=== PATIENT | male | born 1960 ===

== ENCOUNTER 2017-01-14 19:36 | Observation (INO) | payer BC, OTHER ==
[2017-01-14 22:29] LABS: BASO # 0.1 K/uL (0.0-0.2); BASO % 0.9 % (0.0-2.0); EOS # 0.2 K/uL (0.0-0.7); HEMATOCRIT 43.5 % (35.0-51.0); LYMPH # 2.6 K/uL (1.0-4.3); LYMPH % 32.9 % (20.0-40.0); MEAN CELL VOLUME 87.2 fl (80.0-94.0); MEAN CORPUSCULAR HEMOGLOBIN 29.5 pg (27.0-31.0); MEAN CORPUSCULAR HGB CONC 33.9 g/dL (33.0-37.0); MEAN PLATELET VOLUME 8.1 fl (7.2-11.7); MONO # 0.6 K/uL (0.0-0.8); NEUT # 4.4 K/uL (1.8-7.0); NEUT % 55.2 % (50.0-75.0); RED CELL DISTRIBUTION WIDTH 14.1 % (11.5-14.5)
[2017-01-14 22:44] LABS: BLOOD UREA NITROGEN 16 mg/dl (9-20); CALCIUM 10.4 mg/dL (8.4-10.2); CARBON DIOXIDE 28 mmol/L (22-30); CHLORIDE 104 mmol/L (98-107); GFR AFRICAN-AMERICAN > 60; GLUCOSE,RANDOM 101 mg/dL (75-110); POTASSIUM 4.1 MMOL/L (3.6-5.0); SODIUM 146 mmol/l (132-148)
[2017-01-14 22:59] LABS: PARTIAL THROMBOPLASTIN TIME 30.5 SECONDS (23.3-32.5)
--- NOTE | 2017-01-14 23:11 | CT ---
EXAM: CT Head Without Intravenous Contrast CLINICAL HISTORY: 56 years old, male; Signs and symptoms; Other: Ataxia; Patient HX: HTN. Dementia; Additional info: Dementia ataxia TECHNIQUE: Axial computed tomography images of the head/brain without intravenous contrast. This CT exam was performed using one or more of the following dose reduction techniques: automated exposure control, adjustment of the mA and/or kV according to patient size, and/or use of iterative reconstruction technique. Coronal and sagittal reformatted images were created and reviewed. COMPARISON: No relevant prior studies available. FINDINGS: Brain: There is mild prominence of ventricles and sulci, compatible with mild atrophy. There is no evidence of intracranial hemorrhage. No evidence of acute territorial infarction. No significant white matter disease. No edema. Ventricles: See above. Bones/joints: Unremarkable. No acute fracture. Soft tissues: Unremarkable. Sinuses: Unremarkable as visualized. No acute sinusitis. Mastoid air cells: Unremarkable as visualized. No mastoid effusion. IMPRESSION: 1. No evidence for acute intracranial abnormality or displaced calvarial fracture. 2. Additional incidental and/or chronic findings as described.
--- NOTE | 2017-01-14 23:30 | ED PDOC ---
HPI: General Adult Time Seen by Provider: 01/14/17 20:35 Chief Complaint (Nursing): Abnormal Labs Chief Complaint (Provider): gait issues and dementia History Per: Patient History/Exam Limitations: no limitations Onset/Duration Of Symptoms: Days (1 year ) Have you had recent travel within the past 21 days to any of the following countries: [place], [place], [place] or [place]?: No Current Symptoms Are (Timing): Still Present Additional Complaint(s): 56yo male presents to the ED with c/o of gait issues and dementia for 1 year. Patient's PCP is Dr. Burroughs and has had multiple workups and syphilis was positive so he sent patient to infectious disease specialist Dr. Gonzalez. In January, patient saw Dr. Estrella (neurologist) and worked patient up for ataxia and dementia. Dr. Estrella then referred patient back to Dr. Burroughs again and patient decided to present to the ED for evaluation. Denies weakness, fever, headache. States sometimes he falls. Patient has never had a CT or MRI of his head. Past Medical History Reviewed: Historical Data, Nursing Documentation, Vital Signs Vital Signs: Last Vital Signs Temp 96.7 F L 01/16/17 00:15 Pulse 65 01/16/17 03:30 Resp 20 01/16/17 00:15 BP 110/70 01/16/17 00:15 Pulse Ox 96 01/16/17 00:15 - Medical History PMH: No Chronic Diseases - Surgical History Surgical History: No Surg Hx - Family History Family History: States: No Known Family Hx - Home Medications Home Medications: Ambulatory Orders Medication Instructions Recorded Aspirin [Ecotrin] 81 mg PO DAILY 01/15/17 Baclofen [Lioresal] 10 mg PO DAILY 01/15/17 Cholecalciferol [Vitamin D 1000 IU] 1,000 iu PO DAILY 01/15/17 Gabapentin [Neurontin] 300 mg PO DAILY 01/15/17 Iron Ps Cmplx/Vit B12/FA 1 cap PO DAILY 01/15/17 [Poly-Iron 150 Forte Capsule] Memantine HCl/Donepezil HCl 1 pkg PO DAILY 01/15/17 [Namzaric Titration Pack] - Allergies Allergies/Adverse Reactions: Allergies Allergy/AdvReac Type Severity Reaction Status Date / Time No Known Allergies Allergy Verified 01/14/17 19:51 Review of Systems ROS Statement: Except As Marked, All Systems Reviewed And Found Negative Constitutional: Negative for: Fever Neurological: Negative for: Weakness, Headache Psych: Positive for: Other (gait issues, dementia ) Physical Exam - Reviewed Nursing Documentation Reviewed: Yes Vital Signs Reviewed: Yes - Physical Exam Appears: Positive for: Well, No Acute Distress Head Exam: Positive for: ATRAUMATIC, NORMAL INSPECTION, NORMOCEPHALIC Skin: Positive for: Normal Color, Warm, Dry Eye Exam: Positive for: Normal appearance, EOMI, PERRL ENT: Positive for: Normal ENT Inspection Neck: Positive for: Normal, Painless ROM, Supple Cardiovascular/Chest: Positive for: Regular Rate, Rhythm. Negative for: Murmur , Tachycardia Respiratory: Positive for: Normal Breath Sounds. Negative for: Wheezing, Respiratory Distress Gastrointestinal/Abdominal: Positive for: Normal Exam, Bowel Sounds, Soft. Negative for: Tenderness Back: Positive for: Normal Inspection. Negative for: L CVA Tenderness, R CVA Tenderness Extremity: Positive for: Normal ROM. Negative for: Deformity, Swelling Neurologic/Psych: Positive for: Alert, tumor registrar II-XII (intact ), Oriented, Cerebellar Tests (normal ), Gait (somewhat unsteady ). Negative for: Motor/ Sensory Deficits, Aphasia, Facial Droop - Laboratory Results Result Diagrams: 01/14/17 21:45 01/14/17 22:30 - ECG O2 Sat by Pulse Oximetry: 98 Pulse Ox Interpretation: Normal (RA) - CT Scan/US CT head Other Rad Studies (CT/US): Read By Radiologist, Radiology Report Reviewed Other Rad Interpretation: no acute findings Medical Decision Making Medical Decision Makin: Impression: dementia and ataxia, r/o intracranial tumor vs. stroke vs. neurosyphilis Plan: Spoke with Dr. Gonzalez who agrees that patient should have non-emergent LP if syphilis is confirmed and then treated. Spoke with Dr. Burroughs who would like patient to be admitted to r/o neurosyphilis and possible antibiotics treatment. Spoke with Dr. Martinez who will admit patient for Dr. Burroughs. Will have LP performed by interventional radiologist tomorrow. CT head and labs ordered. Scribe Attestation: Documented by Adrián Arroyo acting as a scribe for Mirtha Rosa MD. Provider Scribe Attestation: All medical record entries made by the Scribe were at my direction and personally dictated by me. I have reviewed the chart and agree that the record accurately reflects my personal performance of the history, physical exam, medical decision making, and the department course for this patient. I have also personally directed, reviewed, and agree with the discharge instructions and disposition. Disposition - Clinical Impression Clinical Impression: Ataxia, Dementia, Syphilis - Patient ED Disposition Is Patient to be Admitted: Yes Discussed With : Ewelina Martinez Doctor Will See Patient In The: ED Counseled Patient/Family Regarding: Studies Performed, Diagnosis - Disposition Disposition Time: 23:00 Condition: FAIR - Pt Status Changed To: Hospital Disposition Of: Observation - POA Present On Arrival: None
--- NOTE | 2017-01-15 00:13 | CP.PCM.HP ---
History of Present Illness - History of Present Illness History of Present Illness: CC: dementia, falls, wide-based gait; being admitted for CT guided LP History from family members HPI: This is a 56 y/o male with MHx of obs sleep apnea and dementia who comes in today after being told to be admitted for CT guided LP for w/u up of possible neurosyphilis. Per patient family, neurologist was working up patient for dementia and gait abnormality, and apparently found some history of syphilis. Patient was found to have RPR+, sent to PCP for PCN injection, PCN did further w/u and there was some concern for neurosyphilis as cause of dementia, and patient was sent to ID for further w/u. ID recommended LP and IV abx if neurosyphilis is diagnosed, and sent patient back to neuro for LP. Neuro unable to perform LP in office apparently, and thus patient sent to ER for LP from where patient is admitted now for said CT guided LP in AM. No acute mental status changes. NO fever, headache. ROS: 14 systems reviewed, negative other than HPI MHx: Dementia, obs sleep apnea SHx: None Allergies: NKDA Medications: Per med rec; also on CPAP Family Hx: DM2, hypothyroid, HTN Social Hx: Lives with family, no EtOH or tobacco Present on Admission - Present on Admission Any Indicators Present on Admission: No Meds Allergies/Adverse Reactions: Allergies Allergy/AdvReac Type Severity Reaction Status Date / Time No Known Allergies Allergy Verified 01/14/17 19:51 Physical Exam - Constitutional Appears: No Acute Distress - Head Exam Head Exam: ATRAUMATIC, NORMOCEPHALIC - Eye Exam Eye Exam: EOMI, PERRL - ENT Exam ENT Exam: Mucous Membranes Moist - Neck Exam Neck exam: Positive for: Full Rom - Respiratory Exam Respiratory Exam: Clear to Auscultation Bilateral, NORMAL BREATHING PATTERN - Cardiovascular Exam Cardiovascular Exam: REGULAR RHYTHM, +S1, +S2 - GI/Abdominal Exam GI & Abdominal Exam: Normal Bowel Sounds, Soft - Extremities Exam Extremities exam: Positive for: full ROM, normal inspection - Neurological Exam Neurological exam: Alert, CN II-XII Intact, Oriented x3 Additional comments: does have a broad based shuffling gait - Psychiatric Exam Psychiatric exam: Normal Affect, Normal Mood - Skin Skin Exam: Dry, Normal Color Results - Vital Signs Recent Vital Signs: Last Vital Signs Temp 98.2 F 01/14/17 19:51 Pulse 85 01/14/17 19:51 Resp 18 01/14/17 19:51 BP 129/77 01/14/17 19:51 Pulse Ox 98 01/14/17 23:52 - Labs Result Diagrams: 01/14/17 21:45 01/14/17 22:30 - Imaging and Cardiology CT scan - head Status: Image reviewed by me (no acute findings) Assessment & Plan (1) Ataxia Assessment and Plan: 56 y/o male here for ataxia/falls/dementia for eval of neurosyphilis. -Admit obs -sched for IR LP in AM -Consult for neuro and ID ordered -SCDs only for DVT PPx Status: Acute (2) Dementia Status: Acute (3) Syphilis Status: Acute (4) DVT prophylaxis Status: Acute
[2017-01-15] MEDS ORDERED: Pneumococcal 23-Valent Vaccine IM ONE (06:12)
[2017-01-15 07:47] VITALS: RESP 20
[2017-01-15 09:27] LABS: THYROID STIMULATING HORMONE 0.78 mIU/ML (0.46-4.68)
--- NOTE | 2017-01-15 11:48 | CP.PCM.CON ---
History of Present Illness - History of Present Illness History of Present Illness: Infectious Disease Consultation Note- asked to see this patient at the request of Hospitalist. HPI- Pt. 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 Pt. has been having gait difficulty and dementia work up for the past year and as part of that work up he was found to have pos RPR of 1:4 and hence he was referred to me for evaluation. during my office visit with seevriano last week I had advised that since he is having gait and memory difficulty it would be langley to rule out neurosyhilis first sicen treatment would be different as opposed to latent syphilis. He was advised to f/u with his Neurologist Christy Elizabeth who has been working pt. up for dementia for the past few months and to have LP done by him and to send CSF for CDRL and r/o Neurosyphilis. as per ER doc last night apparently Pt. was told by the neurologist that he needs to have LP done as inpatient and hence pt. was admitted last night for this reason. He is seen today in [facility] and his daughter and son are at his bedside. as per pt's daughter he had a fall this week but did not hit his head. as per pt. and her daughter and son he feels uncomfortable walking and has gait instability and also his memory has been bad for the past year.Apparently pt. has been started on baclofen and namenda by the neurologist. pt. denies any DOBBS, denies any fever or chills, denies any blurry or double vision. denies any recent travel. Pt. explains 30 years ago he was told he had pos syphilis and had received 2 PCN injections. pt. is awaiting LP today. his is a 56 y/o male with MHx of obs sleep apnea and dementia who comes in today after being told to be admitted for CT guided LP for w/u up of possible neurosyphilis. Per patient family, neurologist was working up patient for dementia and gait abnormality, and apparently found some history of syphilis. Patient was found to have RPR+, sent to PCP for PCN injection, PCN did further w /u and there was some concern for neurosyphilis as cause of dementia, and patient was sent to ID for further w/u. ID recommended LP and IV abx if neurosyphilis is diagnosed, and sent patient back to neuro for LP. Neuro unable to perform LP in office apparently, and thus patient sent to ER for LP from where patient is admitted now for said CT guided LP in AM. No acute mental status changes. NO fever, headache. ROS: 14 systems reviewed, negative other than HPI MHx: Dementia, obs sleep apnea SHx: None Allergies: NKDA Medications: Per med rec; also on CPAP Family Hx: DM2, hypothyroid, HTN Social Hx: Lives with family, no EtOH or tobacco Review of Systems - Review of Systems Review of Systems: ROS- denies any fever or chills, denies any DOBBS, denies any cough, denies any sob, denies any chest pain, denies any abd. pain, denies any dysurea, denies any diarrhea has memory deficiencies and gait problems for the past year with frequent falls Past Patient History - Past Medical History & Family History Past Medical History?: No - Past Social History Smoking Status: Never Smoked Home Situation {Lives}: With Family - NEUROLOGICAL Hx Neurological Disorder: Yes - HEENT Hx HEENT Problems: No - RENAL Hx Chronic Kidney Disease: No - ENDOCRINE/METABOLIC Hx Endocrine Disorders: No - HEMATOLOGICAL/ONCOLOGICAL Hx Blood Disorders: No - INTEGUMENTARY Hx Dermatological Problems: No - MUSCULOSKELETAL/RHEUMATOLOGICAL Hx Musculoskeletal Disorders: Yes - GASTROINTESTINAL Hx Gastrointestinal Disorders: No - GENITOURINARY/GYNECOLOGICAL Hx Genitourinary Disorders: No - PSYCHIATRIC Hx Psychophysiologic Disorder: No - SURGICAL HISTORY Hx Surgeries: No - ANESTHESIA Hx Anesthesia: No Hx Anesthesia Reactions: No Hx Malignant Hyperthermia: No Has any member of the family had a problem w/ anesthesia?: No Meds Allergies/Adverse Reactions: Allergies Allergy/AdvReac Type Severity Reaction Status Date / Time No Known Allergies Allergy Verified 01/14/17 19:51 Physical Exam - Constitutional Appears: Non-toxic - Head Exam Head Exam: ATRAUMATIC - Eye Exam Eye Exam: EOMI, PERRL - ENT Exam ENT Exam: Normal Oropharynx - Neck Exam Neck exam: Positive for: Full Rom Additional comments: supple - Respiratory Exam Respiratory Exam: Clear to Auscultation Bilateral, NORMAL BREATHING PATTERN - Cardiovascular Exam Cardiovascular Exam: RRR, +S1, +S2 - GI/Abdominal Exam GI & Abdominal Exam: Normal Bowel Sounds, Soft Additional comments: Nt, ND - Extremities Exam Extremities exam: Positive for: normal inspection - Neurological Exam Neurological exam: Alert, Oriented x3 Additional comments: forward gait while walking in room and wide based gait Results - Vital Signs Recent Vital Signs: Last Vital Signs Temp 98.5 F 01/15/17 07:46 Pulse 74 01/15/17 07:46 Resp 20 01/15/17 07:46 BP 139/85 01/15/17 07:46 Pulse Ox 95 01/15/17 07:46 - Labs Result Diagrams: 01/14/17 21:45 01/14/17 22:30 Labs: Laboratory Results - last 24 hr 01/15/17 08:28 Vitamin B12 850 TSH 3rd Generation 0.78 Laboratory Results - last 72 hr 01/14/17 01/14/17 01/14/17 21:45 22:30 22:37 WBC 8.0 RBC 4.99 Hgb 14.7 Hct 43.5 MCV 87.2 MCH 29.5 MCHC 33.9 RDW 14.1 Plt Count 237 MPV 8.1 Neut % (Auto) 55.2 Lymph % (Auto) 32.9 [place] % (Auto) 8.0 Eos % (Auto) 3.0 Baso % (Auto) 0.9 Neut # 4.4 Lymph # 2.6 [place] # 0.6 Eos # 0.2 Baso # 0.1 PT 10.7 INR 1.03 APTT 30.5 Sodium 146 Potassium 4.1 Chloride 104 Carbon Dioxide 28 Anion Gap 18 BUN 16 Creatinine 0.8 Est GFR ( Amer) > 60 Est GFR (Non-Af Amer) > 60 POC Glucose (mg/dL) 98 Random Glucose 101 Calcium 10.4 H Vitamin B12 Folate TSH 3rd Generation Fluid Type CSF Volume CSF Appearance CSF WBC CSF RBC CSF Total Cell Counted CSF Neutrophils CSF Lymphocytes CSF Monos/Macrophages CSF Comment CSF Glucose CSF Total Protein RPR Titer RPR HIV 1&2 Antibody Screen Assessment & Plan (1) Syphilis Status: Acute (2) Ataxia Status: Acute (3) Dementia Status: Acute - Assessment and Plan (Free Text) Assessment: A/P- 56 year old male with progressive dementia and ataxia with positive RPR. in light of the pos RPR and FTA- ABS advise to rule out neurosyphilis with CSF VDRL. if CSF VDRL is negative then patient can be treated fro latent syphilis with Bicillin IM 2.4 million units once a week injection for 3 weeks but if CSF VDRL is positive then he should be treated with IV abx either PCN G 3-4 million units IV [id number] for 10-14 days or alternatively ceftriaxone 2 gram IV q24 hours for 14 days for neurosyphilis. also advise to r/o HIV. also check CSF HSV PCR as well. also would advise to rule out Parkinson's disease . Thank you for allowing me to take part in the care of this patient. all above d/w patient and his family at bedside at length. they verbalzies full understanding of all above. will f/u while inpatient.
--- NOTE | 2017-01-15 15:27 | PCM.PROC ---
Procedures Attestation:: I certify that I have explained the specified Operation(s) or Procedure(s), risks, benefits and reasonable alternatives to the Patient and/or other person responsible. The opportunity was given to ask questions and all questions answered - Lumbar Puncture Consent Obtained: Written Consent Time Out Performed: Yes Patient Position: Upright Skin Prep: Povidone-Iodine 1% Local Anesthetic Used: Lidocaine 1% Amount of Anesthesia Used (mls): 4 (ml) Spinal Needle Gauge: 20G Interspace Used: L4-L5 Complications: None
[2017-01-15 15:40] LABS: FLUID TYPE SPINAL FLUID
[2017-01-15 17:36] LABS: RAPID PLASMA REAGIN REACTIVE (NONREACTIVE)
[2017-01-15 17:40] LABS: FOLATE > 20.0 ng/mL
[2017-01-15 17:57] LABS: CSF NEUTROPHIL 2 % (0-0)
[2017-01-16 07:46] VITALS: BP 138/88; PULSE 87; TEMP 97.9; O2SAT 97
[2017-01-16] MEDS ORDERED: cefTRIAXone 2 GM in Sodium Chloride 0.9% 100 ML IVPB SCH (09:00)
[2017-01-16] MEDS ORDERED: Penicillin G Benzathine 2.4 Mill Unit/4 ml Syr IM ONE (11:35)
--- NOTE | 2017-01-16 14:12 | CP.PCM.DIS ---
Provider - Provider Date of Admission: 01/14/17 23:02 Attending physician: Ewelina Martinez MD Primary care physician: Dr burroughs Consults: ID: Dr Gonzalez Time Spent in preparation of Discharge (in minutes): 40 Diagnosis - Discharge Diagnosis (1) Latent syphilis Status: Chronic (2) Ataxia Status: Chronic (3) Dementia Status: Chronic (4) Sleep apnea Status: Chronic Hospital Course - Lab Results Lab Results: Micro Results 01/15/17 15:28 Cerebral Spinal Fluid Gram Stain - Final 01/15/17 15:28 Cerebral Spinal Fluid CSF Culture - Preliminary NO GROWTH AFTER 24 HOURS Most Recent Lab Values WBC 8.0 K/uL (4.8-10.8) 01/14/17 21:45 RBC 4.99 Mil/uL (4.40-5.90) 01/14/17 21:45 Hgb 14.7 g/dL (12.0-18.0) 01/14/17 21:45 Hct 43.5 % (35.0-51.0) 01/14/17 21:45 MCV 87.2 fl (80.0-94.0) 01/14/17 21:45 MCH 29.5 pg (27.0-31.0) 01/14/17 21:45 MCHC 33.9 g/dL (33.0-37.0) 01/14/17 21:45 RDW 14.1 % (11.5-14.5) 01/14/17 21:45 Plt Count 237 K/uL (130-400) 01/14/17 21:45 MPV 8.1 fl (7.2-11.7) 01/14/17 21:45 Neut % (Auto) 55.2 % (50.0-75.0) 01/14/17 21:45 Lymph % (Auto) 32.9 % (20.0-40.0) 01/14/17 21:45 [place] % (Auto) 8.0 % (0.0-10.0) 01/14/17 21:45 Eos % (Auto) 3.0 % (0.0-4.0) 01/14/17 21:45 Baso % (Auto) 0.9 % (0.0-2.0) 01/14/17 21:45 Neut # 4.4 K/uL (1.8-7.0) 01/14/17 21:45 Lymph # 2.6 K/uL (1.0-4.3) 01/14/17 21:45 [place] # 0.6 K/uL (0.0-0.8) 01/14/17 21:45 Eos # 0.2 K/uL (0.0-0.7) 01/14/17 21:45 Baso # 0.1 K/uL (0.0-0.2) 01/14/17 21:45 PT 10.7 SECONDS (9.6-11.2) 01/14/17 21:45 INR 1.03 (0.92-1.08) 01/14/17 21:45 APTT 30.5 SECONDS (23.3-32.5) 01/14/17 21:45 Sodium 146 mmol/l (132-148) 01/14/17 22:30 Potassium 4.1 MMOL/L (3.6-5.0) 01/14/17 22:30 Chloride 104 mmol/L (98-107) 01/14/17 22:30 Carbon Dioxide 28 mmol/L (22-30) 01/14/17 22:30 Anion Gap 18 (10-20) 01/14/17 22:30 BUN 16 mg/dl (9-20) 01/14/17 22:30 Creatinine 0.8 mg/dL (0.8-1.5) 01/14/17 22:30 Est GFR ( Amer) > 60 01/14/17 22:30 Est GFR (Non-Af Amer) > 60 01/14/17 22:30 POC Glucose (mg/dL) 98 mg/dL (65-110) 01/14/17 22:37 Random Glucose 101 mg/dL (75-110) 01/14/17 22:30 Calcium 10.4 mg/dL (8.4-10.2) H 01/14/17 22:30 Vitamin B12 850 pg/mL (239-931) 01/15/17 08:28 Folate > 20.0 ng/mL 01/15/17 08:28 TSH 3rd Generation 0.78 mIU/ML (0.46-4.68) 01/15/17 08:28 Fluid Type Spinal fluid 01/15/17 15:28 CSF Volume 1 mL (0-1) 01/15/17 15: CSF Appearance Clear/colorless (CLEAR) 01/15/17 15: CSF WBC 12.0 /mm3 (0.0-5.0) H 01/15/17 15: CSF RBC 84.0 /mm3 (0.0-0.0) H 01/15/17 15: CSF Total Cell Counted TEST NOT PERFORMED 01/15/17: CSF Neutrophils 2 % (0-0) H 01/15/17: CSF Lymphocytes 1.0 % (0-0) H 01/15/17: CSF Monos/Macrophages 0 % (0-0) 01/15/17: CSF Comment None 01/15/17: CSF Glucose 59 mg/dL (40-70) 01/15/17 15: CSF Total Protein 38.0 mg/dL (12-60) 01/15/17: CSF VDRL Nonreactive (Nonreactive) 01/15/17: RPR Titer 1:2 (NONREACTIVE) H 01/15/17: RPR Reactive (NONREACTIVE) H 01/15/17 08: HIV 1&2 Antibody Screen Negative (NEGATIVE) 01/15/17 08:28 - Hospital Course Hospital Course: 56 y/o gent, who has been having Gait imbalance and Dementia for the past year , was sent by his PMD to r/o Neurosyphilis. Pt has been having ataxia/gait imbalnce for a year and was being worked up as outpt . He had seen and Neurology and had extensive work up with Dr Estrella . He had a + RPR 1:4 dilution and was sent to see ID who rec that Lumbar Tap be done. LP was done by Anesthesia and CSF was sent for analysis . CSF VDRL came back negative. ID consulted and rec tx for Latent Syphilis. CSF protein and glucose normal. WBC =12. CSF HSV pending. Discussed case with Dr Estrella who cleared pt for d/c and he will see pt in his office. Pt is asymptomatic at present, no fever, no DOBBS, no nuchal rigidity. PT consulted- pt refused PT eval and wanted to go home. Bicillin 2.4 mil units IM given. - arrangement made for pt to have 2 more doses ( once a wk ) at [facility]. (1) Latent syphilis Status: Chronic ID consulted Bicillin 2.4 million units started - pt to come back x weekly x 2 wks at [facility] for IM injection (2) Ataxia Status: Chronic further work up with Dr Estrella as outpt - as discussed (3) Dementia Status: Chronic cont Namenda (4) Sleep apnea Status: Chronic cont CPAP Discharge Exam - Head Exam Head Exam: ATRAUMATIC, NORMAL INSPECTION, NORMOCEPHALIC - Eye Exam Eye Exam: EOMI, Normal appearance, PERRL Pupil Exam: NORMAL ACCOMODATION - ENT Exam ENT Exam: Mucous Membranes Moist, Normal External Ear Exam - Neck Exam Neck exam: Full Rom Additional comments: no nuchal rigidity - Respiratory Exam Respiratory Exam: NORMAL BREATHING PATTERN. absent: Respiratory Distress - Cardiovascular Exam Cardiovascular Exam: REGULAR RHYTHM, +S1, +S2 - GI/Abdominal Exam GI & Abdominal Exam: Normal Bowel Sounds, Soft. absent: Tenderness - Extremities Exam Extremities exam: full ROM, normal capillary refill, pedal pulses present - Back Exam Back exam: FULL ROM, NORMAL INSPECTION. absent: CVA tenderness (L), CVA tenderness (R), paraspinal tenderness - Neurological Exam Neurological exam: Alert, CN II-XII Intact, Oriented x3, Reflexes Normal - Psychiatric Exam Psychiatric exam: Normal Affect, Normal Mood - Skin Skin Exam: Dry, Normal Color, Warm Discharge Plan - Discharge Medications Prescriptions: Penicillin G Benzathine [Bicillin L-A inj] 2,400,000 units IM QWK #2 syringe - Follow Up Plan Condition: GOOD Disposition: HOME/ ROUTINE Additional Instructions: ff up with Dr Manjeet manzanares appt with Dr Lisa manzanares appt with Dr Estrella this wk for further work up Pt to come to [facility] for IM Bicillin injection once a wk x 2 wks - January 23 and ff up pending CSF analysis with PMD and Dr Gonzalez Referrals: Coy Gonzalez MD [Staff Provider] - Glenn Estrella MD [Medical Doctor] - Juan Manuel Burroughs MD [Family Provider] -
[2017-01-16] MEDS ORDERED: Penicillin G Benz 600,000 Unit/ml Syr IM ONE (14:30)
[2017-01-17 16:05] LABS: HSV 2 DNA Not Detected (Not Detected); SPECIMEN SOURCE CSF (())
== END 2017-01-16 18:00 | disposition home or self-care (01) ==
LOC: H.ER 19:36 → H.ERHOLD 23:02 → H.MEDSURG1 01-15 01:22
PROVIDERS: ADMIT Internal Medicine; ATTEND Internal Medicine
DX: A53.0 Latent syphilis, unspecified as early or late (principal); R27.0 Ataxia, unspecified; G47.33 Obstructive sleep apnea (adult) (pediatric); Z23 Encounter for immunization; F03.90 Unspecified dementia, unspecified severity, without behavioral disturbance, psychotic disturbance, mood disturbance, and anxiety

== ENCOUNTER 2017-10-15 08:33 | Day surgery (SDC) | payer OTHER ==
[2017-01-23 13:50] VITALS: BMI 29.7
[2017-10-15] MEDS ORDERED: Lactated Ringer's 1,000 ML IV ONE (10:11)
[2017-10-15] MEDS ORDERED: Propofol 10 mg/ml Inj (20 ML) ONE (11:53)
[2017-10-15] MEDS ORDERED: Metoprolol 1 mg/ml Inj IVP ONE (11:53)
[2017-10-15] MEDS ORDERED: Lidocaine 2% MPF (5 ml) Inj ONE (11:54)
[2017-10-15 12:46] VITALS: BP 117/71; PULSE 78; RESP 14; TEMP 97.2; O2SAT 100
== END 2017-10-15 12:58 | disposition home or self-care (01) ==
LOC: H.ENDO 08:33
PROVIDERS: ATTEND Internal Medicine Gastroenterology
DX: Z12.11 Encounter for screening for malignant neoplasm of colon (principal); K64.8 Other hemorrhoids
CPT/HCPCS: 45378; J2704; J7120

== ENCOUNTER 2017-12-30 15:18 | Emergency (ER) | payer OTHER ==
[2017-12-30 15:19] VITALS: BMI 29.7
[2017-12-30 16:02] VITALS: BP 160/88; PULSE 83; RESP 16; TEMP 98.3; O2SAT 97
[2017-12-30] MEDS ORDERED: Naproxen 500 MG TAB PO STA (17:20)
--- NOTE | 2017-12-30 17:24 | ED PDOC ---
Lower Extremity Pain/Injury Time Seen by Provider: 12/30/17 16:30 Chief Complaint (Nursing): Lower Extremity Problem/Injury Chief Complaint (Provider): Left knee pain History Per: Patient, Family History/Exam Limitations: no limitations Onset/Duration Of Symptoms: Hrs Current Symptoms Are (Timing): Still Present Additional Complaint(s): 57yo male with history of hypertension, sleep apnea, depression, presents to ED for evaluation of left anterior knee pain after he sustained an injury while at work. Patient states he was lifting a heavy garbage bag to put in a truck when it banged into his knee. He reports pain upon ambulation that has been worsening throughout the day but denies any weakness, numbness, tingling. He offers no other medical complaints at his time. Denies any other injury. PMD: Jonzo - Knee Description Of Injury: Struck With Object Past Medical History Reviewed: Historical Data, Nursing Documentation, Vital Signs Vital Signs: Last Vital Signs Temp 98.3 F 12/30/17 16:00 Pulse 83 12/30/17 16:00 Resp 16 12/30/17 16:00 BP 160/88 H 12/30/17 16:00 Pulse Ox 97 12/30/17 16:00 - Medical History PMH: Depression, HTN, Hypercholesterolemia, Sleep Apnea Denies: Chronic Kidney Disease - Surgical History Surgical History: No Surg Hx - Family History Family History: States: No Known Family Hx - Home Medications Home Medications: Ambulatory Orders Medication Instructions Recorded Meloxicam [Mobic] 15 mg PO DAILY #14 tablet 12/30/17 - Allergies Allergies/Adverse Reactions: Allergies Allergy/AdvReac Type Severity Reaction Status Date / Time No Known Allergies Allergy Verified 12/30/17 16:00 Review of Systems ROS Statement: Except As Marked, All Systems Reviewed And Found Negative Musculoskeletal: Positive for: Leg Pain (left knee pain) Neurological: Negative for: Weakness, Numbness Physical Exam - Reviewed Nursing Documentation Reviewed: Yes Vital Signs Reviewed: Yes - Physical Exam Comments: GENERAL APPEARANCE: Patient is awake, alert, oriented x 3, in no acute distress. Ambulatory in ED with steady, unassisted gait. SKIN: Warm, dry; (-) cyanosis. EYES: (-) conjunctival pallor, (-) scleral icterus, (-) nystagmus. CHEST AND RESPIRATORY: (-) chest wall tenderness. Lungs: (-) rales, (-) rhonchi , (-) wheezes; breath sounds equal bilaterally. HEART AND CARDIOVASCULAR: (-) irregularity; (-) murmur, (-) gallop. BACK: (-) tenderness. EXTREMITIES: (-) deformity, (+) tenderness left anterior knee, (-) edema, (-) ecchymosis, (-) limitation of motion, (-) effusion (-) anterior and posterior drawer sign (-) instability on valgus or varus stress. Distal pulses 2+. (-) calf tenderness (-) pedal edema. NEURO AND PSYCH:Mental status as above. Has full memory of episode; No gross sensory deficits. - ECG O2 Sat by Pulse Oximetry: 97 (RA) Pulse Ox Interpretation: Normal Medical Decision Making Medical Decision Making: Impression: Acute knee pain/contusion Plan: -- XR left knee -- Naproxen 500 gm PO -- Tramadol 50 mg PO Time: 1820 XR Left knee: no fracture, no dislocation, as read by ABDULAZIZ. Patient advised that official radiology read of XR is still pending and will call the patient if there is any discrepancy within 24 hours. Upon re-evaluation, patient states the pain has improved significantly. Jack bandage applied to knee. NV intact after placement. Patient is stable for discharge home. Patient instructed on RICE method for home care. Advised to follow up with primary care physician in 1-2 days without fail. Advised to take medication as prescribed. Return to the emergency room at any time for any new or worsening symptoms. Patient states he fully agrees with and understands discharge instructions. States that he agrees with the plan and disposition. Verbalized and repeated discharge instructions and plan. I have given the patient opportunity to ask any additional questions. Scribe Attestation: Documented by Emma Calderon acting as a scribe for ABDULAZIZ Ibarra Provider Attestation: All medical record entries made by the Scribe were at my direction and personally dictated by me. I have reviewed the chart and agree that the record accurately reflects my personal performance of the history, physical exam, medical decision making, and the department course for this patient. I have also personally directed, reviewed, and agree with the discharge instructions and disposition. Disposition - Clinical Impression Clinical Impression: Knee injury, Knee pain, Contusion, knee - Patient ED Disposition Is Patient to be Admitted: No Counseled Patient/Family Regarding: Studies Performed, Diagnosis, Need For Followup, Rx Given - Disposition Referrals: [facility] [Outside] Disposition: Routine/Home Disposition Time: 18:21 Condition: STABLE Additional Instructions: REST ICE ELEVATE COMPRESS Prescriptions: Meloxicam [Mobic] 15 mg PO DAILY #14 tablet Instructions: Contusion (DC), Knee Pain (DC) Forms: [employer] (Latvian) Print Language: DOMINICAN - POHenry Present On Arrival: None
[2017-12-30] MEDS ORDERED: Naproxen 500 MG TAB PO ONE (17:39)
--- NOTE | 2017-12-31 08:57 | RAD ---
PROCEDURE: Left Knee Radiographs. HISTORY: Pain. COMPARISON: Left knee radiographs dated 07/12/2009 ; MRI left knee dated 08/16/2009. FINDINGS: BONES: No acute fracture. JOINTS: Unremarkable. JOINT EFFUSION: Moderate effusion. OTHER FINDINGS: None. IMPRESSION: Moderate suprapatellar joint effusion without demonstrated fracture dislocation.
== END 2017-12-30 20:19 | disposition home or self-care (01) ==
LOC: H.ER 15:18
DX: T14.90XA Injury, unspecified, initial encounter (principal); S80.02XA Contusion of left knee, initial encounter; W22.8XXA Striking against or struck by other objects, initial encounter; Y99.0 Civilian activity done for income or pay; E78.00 Pure hypercholesterolemia, unspecified; I10 Essential (primary) hypertension; Z86.59 Personal history of other mental and behavioral disorders